=== PATIENT | male | born 1940 | race Two or more races ===

== ENCOUNTER 2021-02-01 14:06 | Emergency (ER) | payer BC, OTHER ==
[~2021-02-01] VITALS: Ht 177.8 cm; Wt 86.2 kg
[2021-02-01 14:52] VITALS: BP 139/89
[2021-02-01] MEDS ORDERED: TETANUS-DIPTH-ACEL PERTUSSIS 0.5ML SYR Tdap IM ONE (17:00)
== END 2021-02-01 17:15 | disposition home or self-care (01) ==
LOC: ER 14:06
DX: S51.811A Laceration without foreign body of right forearm, initial encounter (principal); I10 Essential (primary) hypertension; W01.0XXA Fall on same level from slipping, tripping and stumbling without subsequent striking against object, initial encounter; Y93.89 Activity, other specified; Y92.89 Other specified places as the place of occurrence of the external cause; Y99.8 Other external cause status
CPT/HCPCS: 12002; 90471; 90715